=== PATIENT | male | born 1990 | race Caucasian/White ===

== ENCOUNTER 2020-09-17 01:45 | Emergency (ER) | payer SELFPAY ==
[~2020-09-17] VITALS: Ht 154.9 cm; Wt 63.0 kg
[2020-09-17 02:22] LABS: BASOPHILS % 0.5 % (0.0-2.0); EOSINOPHILS % 3.4 % (0.0-5.0); HEMATOCRIT. 46.4 % (42.0-52.0); HEMOGLOBIN. 15.7 g/dL (14.0-18.0); LYMPHOCYTES % 35.4 % (20.0-50.0); MEAN CORPUSCULAR HEMOGLOBIN 30.8 pg (28.0-32.0); MEAN CORPUSCULAR VOLUME 90.9 fL (80.0-94.0); MEAN PLATELET VOLUME 8.2 fl (7.4-10.4); MONOCYTES % 6.7 % (2.0-8.0); PLATELET 271 x1000/uL (130-400); RED CELL DISTRIBUTION WIDTH 13.2 % (11.6-14.6)
[2020-09-17 02:33] LABS: CHLORIDE 107 mEq/L (98-107)
[2020-09-17 02:45] VITALS: BP 116/68
== END 2020-09-17 04:19 | disposition home or self-care (01) ==
LOC: ER 01:45
DX: R07.89 Other chest pain (principal); F15.10 Other stimulant abuse, uncomplicated
CPT/HCPCS: 36415; 71045; 80053; 83880; 84484; 85025; 93005; 99285